=== PATIENT | female | born 1970 | race Caucasian/White ===

== ENCOUNTER 2022-06-27 07:38 | Emergency (ER) | payer SELFPAY ==
[2022-06-27] MEDS ORDERED: Sodium Chloride 0.9% 1,000 ML IV ONE (08:08)
[2022-06-27] MEDS ORDERED: Morphine 4 MG/ML Syringe IVPUSH ONE ×2 (08:08→09:45)
[2022-06-27] MEDS ORDERED: Ondansetron 4 MG/2 ML SDV IVPUSH ONE (08:08)
[2022-06-27] MEDS ORDERED: cefTRIAXone 1 GM in Sodium Chloride 0.9% 50 ML IV ONE (09:05)
[2022-06-27 09:14] LABS: CARBON DIOXIDE,CO2 23.9 mmol/L (21.0-32.0); POTASSIUM,K 3.6 mmol/L (3.5-5.1)
[2022-06-27] MEDS ORDERED: Iopamidol 755 MG/ML 500 ML Multipack Bottle IVPUSH ONE (10:09)
[2022-06-27] MEDS ORDERED: Azithromycin 500 MG in Sodium Chloride 0.9% 250 ML IV ONE (10:57)
== END 2022-06-27 11:25 | disposition left against medical advice (07) ==
LOC: MW.ED 07:38
DX: J85.2 Abscess of lung without pneumonia (principal); Z20.822 Contact with and (suspected) exposure to COVID-19
CPT/HCPCS: 36415; 74177; 80053; 81001; 83605; 83690; 85025; 87040; 87635; 96361; 96365; 96375; 96376; 99284; J0696; J2270; J2405; J3490; J7030; Q9967; U0002

== ENCOUNTER 2022-06-27 12:38 | Emergency (ER) | payer SELFPAY ==
[2022-06-27] MEDS ORDERED: Morphine 4 MG/ML Syringe IVPUSH ONE (15:20)
[2022-06-27] MEDS ORDERED: Ibuprofen 600 MG Tab PO ONE (15:32)
[2022-06-27] MEDS ORDERED: HYDROmorphone 1 MG/ML Syringe IVPUSH ONE ×2 (16:35→18:33)
[2022-06-27] MEDS ORDERED: Sodium Chloride 0.9% 1,000 ML IV ONE (16:35)
[2022-06-27] MEDS ORDERED: HYDROmorphone 2 MG/ML Syringe IVPUSH ONE (20:17)
== END 2022-06-27 20:32 ==
LOC: MW.ED 12:38
DX: J85.1 Abscess of lung with pneumonia (principal); Z90.49 Acquired absence of other specified parts of digestive tract
CPT/HCPCS: 96361; 96374; 96375; 96376; 99284; A9270; J1170; J2270; J7030

== ENCOUNTER 2022-07-11 08:33 | Emergency (ER) | payer SELFPAY ==
[2022-07-11] MEDS ORDERED: Sodium Chloride 0.9% 10 ML Syringe FLUSH PRN (09:09)
[2022-07-11] MEDS ORDERED: Sodium Chloride 0.9% 2.5 ML Syringe FLUSH PRN (09:09)
[2022-07-11] MEDS ORDERED: Ketorolac 30 MG/ML SDV IVPUSH ONE (09:14)
[2022-07-11 09:29] LABS: BASOPHILS PERCENT AUTO 0.2 % (0.0-1.5); EOSINOPHILS ABSOLUTE AUTO 0.1 K/uL (0.0-0.7); EOSINOPHILS PERCENT AUTO 0.8 % (0.0-7.0); HEMATOCRIT 34.2 % (36.0-46.0); HEMOGLOBIN 11.2 g/dL (12.0-16.0); LYMPHOCYTES PERCENT AUTO 17.2 % (16.0-40.0); MEAN CORPUSCULAR HEMOGLOBIN 31.4 pg (27.0-32.0); MEAN CORPUSCULAR HGB CONC 32.7 g/dL (31.0-37.0); MEAN CORPUSCULAR VOLUME 95.8 fL (80.0-98.0); MONOCYTES ABSOLUTE AUTO 0.8 K/uL (0.0-0.8); MONOCYTES PERCENT AUTO 6.7 % (0.0-15.0); NEUTROPHILS ABSOLUTE AUTO 8.6 K/uL (1.4-5.7); NEUTROPHILS PERCENT AUTO 75.1 % (48.0-80.0); NRBC ABSOLUTE 0 K/uL; PLATELET COUNT,PLT 758 K/uL (150-400); RED BLOOD CELL COUNT 3.57 M/uL (4.30-5.90); WHITE BLOOD CELL COUNT,WBC 11.46 K/uL (4.0-11.0)
[2022-07-11 09:57] LABS: A/G RATIO 0.6 (0.9-1.6); ALBUMIN 2.6 g/dL (3.4-5.0); BILIRUBIN TOTAL 0.5 mg/dL (0.2-1.0); CALCIUM 7.9 mg/dL (8.5-10.1); CARBON DIOXIDE,CO2 27.2 mmol/L (21.0-32.0); CREATININE 0.8 mg/dL (0.6-1.0); EST CRCL DRUG DOSING (CG) 77.01 mL/min; POTASSIUM,K 4.1 mmol/L (3.5-5.1); PROTEIN TOTAL,TP 6.7 g/dL (6.4-8.2)
[2022-07-11] MEDS ORDERED: Iopamidol 755 MG/ML 500 ML Multipack Bottle IVPUSH ONE (10:21)
[2022-07-11] MEDS ORDERED: Morphine 4 MG/ML Syringe IVPUSH PRN (11:59)
== END 2022-07-11 13:10 | disposition home or self-care (01) ==
LOC: MW.ED 08:33
DX: S29.012A Strain of muscle and tendon of back wall of thorax, initial encounter (principal); Z72.0 Tobacco use; X50.0XXA Overexertion from strenuous movement or load, initial encounter; Y92.000 Kitchen of unspecified non-institutional (private) residence as the place of occurrence of the external cause
CPT/HCPCS: 36415; 71275; 74177; 80053; 85025; 96374; 96375; 99284; J1885; J2270; J3490; Q9967

== ENCOUNTER 2023-03-29 13:59 | Emergency (ER) | payer BC ==
[2023-03-29 16:42] LABS: CORONAVIRUS COVID-19 NAA NEGATIVE (NEGATIVE); INFLUENZA A NAA POSITIVE (NEGATIVE); INFLUENZA B NAA NEGATIVE (NEGATIVE); RESPIRATORY SYNCYTIAL VIR NAA NEGATIVE (NEGATIVE)
== END 2023-03-29 17:04 | disposition home or self-care (01) ==
LOC: MW.ED 13:59
DX: J10.1 Influenza due to other identified influenza virus with other respiratory manifestations (principal)
CPT/HCPCS: 0241U; 71101; 99283

== ENCOUNTER 2023-10-22 10:26 | Inpatient (IN) | payer SELFPAY ==
[2023-10-22] MEDS ORDERED: Sodium Chloride 0.9% 2.5 ML Syringe FLUSH PRN (10:37)
[2023-10-22] MEDS ORDERED: Sodium Chloride 0.9% 20 ML SDV IV PRN (10:37)
[2023-10-22] MEDS ORDERED: Sodium Chloride 0.9% 10 ML Syringe FLUSH PRN (10:37)
[2023-10-22] MEDS: Sodium Chloride 0.9% 1,000 ML IV ONE (10:46)
[2023-10-22] MEDS: Ondansetron 4 MG/2 ML SDV IVPUSH ONE (10:47)
[2023-10-22] MEDS: Famotidine 20 MG/2 ML SDV IVPUSH ONE (10:47)
[2023-10-22] MEDS: Morphine 4 MG/ML Syringe IVPUSH ONE (10:52)
[2023-10-22 10:54] LABS: BASOPHILS ABSOLUTE AUTO 0.05 K/uL (0.00-0.20); BASOPHILS PERCENT AUTO 0.6 % (0.0-1.0); EOSINOPHILS ABSOLUTE AUTO 0.01 K/uL (0.00-0.45); EOSINOPHILS PERCENT AUTO 0.1 % (0.0-6.0); HEMATOCRIT 38.9 % (37.0-47.0); HEMOGLOBIN 14.3 g/dL (12.0-16.0); IMMATURE GRAN PERCENT AUTO 1.2 % (0.0-0.4); LYMPHOCYTES ABSOLUTE AUTO 1.57 K/uL (1.00-4.80); LYMPHOCYTES PERCENT AUTO 18.1 % (24.0-44.0); MEAN CORPUSCULAR HEMOGLOBIN 36.8 pg (28.0-32.0); MEAN CORPUSCULAR HGB CONC 36.8 g/dL (32.0-36.0); MEAN PLATELET VOLUME 9.5 fL (9.4-12.3); MONOCYTES ABSOLUTE AUTO 1.17 K/uL (0.00-0.80); MONOCYTES PERCENT AUTO 13.5 % (0.0-8.0); NEUTROPHILS ABSOLUTE AUTO 5.77 K/uL (1.80-7.70); NEUTROPHILS PERCENT AUTO 66.5 % (41.0-71.0); PLATELET COUNT,PLT 340 K/uL (150-400); RED BLOOD CELL COUNT 3.89 M/uL (4.10-5.30); WHITE BLOOD CELL COUNT,WBC 8.67 K/uL (3.9-11.3)
[2023-10-22 11:01] LABS: INR 0.99 (0.86-1.11)
[2023-10-22 11:31] LABS: ALBUMIN 3.3 g/dL (3.4-5.0); BILIRUBIN TOTAL 0.9 mg/dL (0.2-1.0); CALCIUM 9.2 mg/dL (8.5-10.1); CARBON DIOXIDE,CO2 25.3 mmol/L (21.0-32.0); CREATININE 0.7 mg/dL (0.6-1.0); EST CRCL DRUG DOSING (CG) 71.75 mL/min; MAGNESIUM 1.5 mg/dL (1.8-2.4); POTASSIUM,K 2.9 mmol/L (3.5-5.1); PROTEIN TOTAL,TP 6.6 g/dL (6.4-8.2)
[2023-10-22] MEDS ORDERED: Magnesium Sulfate (4.06 MEQ/ML) 5 GM/10 ML SDV IV STA (12:05)
[2023-10-22] MEDS: Magnesium Sulfate/Water 2 GM in Premix Bag 1 BAG IV ONE (12:35)
[2023-10-22] MEDS: Potassium Chloride 20 MEQ Tab.ER PO ONE (12:35)
[2023-10-22] MEDS: Potassium Chloride 10% 20 MEQ/15 ML Soln 15 ML UD Cup PO ONE (12:36)
[2023-10-22] MEDS ORDERED: droPERidol 1.25 MG in Sodium Chloride 0.9% 50 ML IV ONE (13:16)
[2023-10-22] MEDS ORDERED: HYDROmorphone 0.5 MG/0.5 ML Syringe IVPUSH PRN (13:21)
[2023-10-22] MEDS: Lactated Ringers 1,000 ML IV ONE (13:43)
[2023-10-22] MEDS: Alum Hydro/Mag Hydro/Simeth XS 15 ML, Lidocaine 2% 5 ML PO ONE (13:43)
[2023-10-22] MEDS ORDERED: Polyethylene Glycol 3350 Powder 17 GM Packet PO PRN (13:47)
[2023-10-22] MEDS ORDERED: Nicotine 7 MG/24 Hr Patch TRDERM SCH (14:00)
[2023-10-22] MEDS: droPERidol 5 MG/2 ML SDV IV ONE (14:41)
[2023-10-22] MEDS: Lactated Ringers 1,000 ML IV SCH (15:24)
[2023-10-22] MEDS: Morphine 2 MG/ML SYRINGE IVPUSH PRN (15:33)
[2023-10-22] MEDS: Nicotine 7 MG/24 Hr Patch TRDERM SCH (15:41)
[2023-10-22] MEDS: Iopamidol 612 MG/ML 100 ML Bottle IVPUSH STA (15:50)
[2023-10-22] MEDS: Enoxaparin 40 MG/0.4 ML Syringe SUBCUT SCH (20:39)
[2023-10-22] MEDS: Ondansetron 4 MG/2 ML SDV IVPUSH PRN (23:15)
[2023-10-23 07:00] LABS: BASOPHILS ABSOLUTE AUTO 0.05 K/uL (0.00-0.20); BASOPHILS PERCENT AUTO 0.7 % (0.0-1.0); EOSINOPHILS ABSOLUTE AUTO 0.03 K/uL (0.00-0.45); EOSINOPHILS PERCENT AUTO 0.4 % (0.0-6.0); HEMATOCRIT 35.3 % (37.0-47.0); HEMOGLOBIN 12.6 g/dL (12.0-16.0); IMMATURE GRAN ABSOLUTE AUTO 0.06 K/uL (0.00-0.05); IMMATURE GRAN PERCENT AUTO 0.9 % (0.0-0.4); LYMPHOCYTES ABSOLUTE AUTO 1.07 K/uL (1.00-4.80); MEAN CORPUSCULAR HEMOGLOBIN 37.1 pg (28.0-32.0); MEAN CORPUSCULAR HGB CONC 35.7 g/dL (32.0-36.0); MEAN CORPUSCULAR VOLUME 103.8 fL (83.0-99.0); MEAN PLATELET VOLUME 9.6 fL (9.4-12.3); MONOCYTES ABSOLUTE AUTO 0.69 K/uL (0.00-0.80); MONOCYTES PERCENT AUTO 10.3 % (0.0-8.0); NEUTROPHILS PERCENT AUTO 71.7 % (41.0-71.0); PLATELET COUNT,PLT 264 K/uL (150-400)
[2023-10-23 07:29] LABS: A/G RATIO 0.9 (0.9-1.6); ALBUMIN 2.5 g/dL (3.4-5.0); BILIRUBIN TOTAL 0.5 mg/dL (0.2-1.0); CALCIUM 8.2 mg/dL (8.5-10.1); CARBON DIOXIDE,CO2 29.1 mmol/L (21.0-32.0); CREATININE 0.5 mg/dL (0.6-1.0); EST CRCL DRUG DOSING (CG) 99.7 mL/min; MAGNESIUM 1.8 mg/dL (1.8-2.4); POTASSIUM,K 3.1 mmol/L (3.5-5.1); PROTEIN TOTAL,TP 5.2 g/dL (6.4-8.2)
[2023-10-23] MEDS: Potassium Chloride 100 ML IV SCH (09:46)
[2023-10-23] MEDS ORDERED: Naloxone 0.4 MG/ML SDV IVPUSH PRN (11:16)
[2023-10-23] MEDS: oxyCODONE 5 MG Tab PO PRN (12:19)
[2023-10-23] MEDS: Potassium Chloride 20 MEQ Tab.ER PO ONE ×2 (14:07→22:19)
[2023-10-23] MEDS: Morphine 2 MG/ML SYRINGE IVPUSH PRN (15:38)
[2023-10-23] MEDS: Melatonin 3 MG Tab PO PRN (20:59)
[2023-10-23] MEDS: Potassium Chloride 10% 20 MEQ/15 ML Soln 15 ML UD Cup PO ONE (22:20)
[2023-10-23] MEDS: Calcium Carbonate 500 MG Tab.Chew PO PRN (23:07)
[2023-10-23] MEDS: Pantoprazole 40 MG in Sodium Chloride 0.9% 10 ML IVPUSH SCH (23:07)
[2023-10-24] MEDS: Acetaminophen 325 MG Tab PO PRN (04:19)
[2023-10-24 06:35] LABS: BASOPHILS ABSOLUTE AUTO 0.04 K/uL (0.00-0.20); BASOPHILS PERCENT AUTO 0.7 % (0.0-1.0); EOSINOPHILS ABSOLUTE AUTO 0.02 K/uL (0.00-0.45); EOSINOPHILS PERCENT AUTO 0.4 % (0.0-6.0); HEMATOCRIT 33.8 % (37.0-47.0); IMMATURE GRAN ABSOLUTE AUTO 0.03 K/uL (0.00-0.05); IMMATURE GRAN PERCENT AUTO 0.5 % (0.0-0.4); LYMPHOCYTES ABSOLUTE AUTO 1.25 K/uL (1.00-4.80); LYMPHOCYTES PERCENT AUTO 22.7 % (24.0-44.0); MEAN CORPUSCULAR HEMOGLOBIN 36.9 pg (28.0-32.0); MEAN CORPUSCULAR HGB CONC 35.5 g/dL (32.0-36.0); MONOCYTES ABSOLUTE AUTO 0.69 K/uL (0.00-0.80); MONOCYTES PERCENT AUTO 12.5 % (0.0-8.0); NEUTROPHILS ABSOLUTE AUTO 3.47 K/uL (1.80-7.70); NEUTROPHILS PERCENT AUTO 63.2 % (41.0-71.0); PLATELET COUNT,PLT 245 K/uL (150-400); RED BLOOD CELL COUNT 3.25 M/uL (4.10-5.30)
[2023-10-24 07:03] LABS: A/G RATIO 0.9 (0.9-1.6); ALBUMIN 2.2 g/dL (3.4-5.0); BILIRUBIN TOTAL 0.3 mg/dL (0.2-1.0); CALCIUM 8.5 mg/dL (8.5-10.1); CARBON DIOXIDE,CO2 31.6 mmol/L (21.0-32.0); CREATININE 0.6 mg/dL (0.6-1.0); EST CRCL DRUG DOSING (CG) 83.08 mL/min; MAGNESIUM 1.3 mg/dL (1.8-2.4); PROTEIN TOTAL,TP 4.8 g/dL (6.4-8.2)
== END 2023-10-24 11:35 | disposition home or self-care (01) | DRG 440 ==
LOC: MW.ED 10:26 → MW.MS 13:28 → OBSVTOIN 10-23 10:47 → MW.MS 10-23 22:24
PROVIDERS: ADMIT Family Medicine; ATTEND Family Medicine
DX: K85.90 Acute pancreatitis without necrosis or infection, unspecified (principal); J44.9 Chronic obstructive pulmonary disease, unspecified; F17.210 Nicotine dependence, cigarettes, uncomplicated; E87.6 Hypokalemia; F10.90 Alcohol use, unspecified, uncomplicated; E83.42 Hypomagnesemia; R11.14 Bilious vomiting; K76.0 Fatty (change of) liver, not elsewhere classified; N20.0 Calculus of kidney; Z87.442 Personal history of urinary calculi; Z90.49 Acquired absence of other specified parts of digestive tract
CPT/HCPCS: 36415; 71045; 71045-26; 74177; 74177-26; 80053; 80061; 80307; 82947; 83690; 83735; 83880; 84484; 85025; 85610; 93005; 93010; 96361; 96365; 96367; 96372; 96375; 96376; 99222; 99232; 99239; 99285; 99285-25; A9270-GY; G0378; J1650; J1790; J2270; J2405; J2470; J3475; J3480; J3490; J7030; J7120